=== PATIENT | male | born 1990 | race American Indian/Alaskan Native ===

== ENCOUNTER 2017-06-23 18:56 | Emergency (ER) | payer OTHER ==
[2017-06-23 20:32] VITALS: BP 138/86
[2017-06-24] MEDS ORDERED: BOOSTRIX IM ONE (00:08)
[2017-06-24] MEDS ORDERED: MOTRIN PO ONE (00:08)
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
[2017-06-24] MEDS ORDERED: TRIPLE ANTIBIOTIC TP ONE (00:15)
== END 2017-06-24 00:45 | disposition home or self-care (01) ==
LOC: ED 18:56
DX: S93.401A Sprain of unspecified ligament of right ankle, initial encounter (principal); S01.81XA Laceration without foreign body of other part of head, initial encounter; W22.8XXA Striking against or struck by other objects, initial encounter; Y93.89 Activity, other specified; Y92.89 Other specified places as the place of occurrence of the external cause; Y99.8 Other external cause status
CPT/HCPCS: 90471; 90715; A6250